=== PATIENT | female | born 1950 | race Caucasian/White ===

== ENCOUNTER 2018-04-07 09:54 | Emergency (ER) | payer OTHER, MEDICAID ==
[~2018-04-07] VITALS: Ht 152.4 cm; Wt 69.4 kg
[2018-04-07 10:01] VITALS: BP 125/73
--- NOTE | 2018-04-07 10:05 | NUR ---
PT AMBULATES TO BED 7
--- NOTE | 2018-04-07 10:20 | NUR ---
PATIENT PRESENTS TO ED WITH COMPLAINTS OF UPPER RIGHT QUADRANT ABDOMINAL PAIN. PATIENT REPORTS BEING IN [place] FOR A WEEK AND EATING CHEESE WHEN THE PAIN STARTED. STATES PAIN HAS BEEN CONSTANT FOR A WEEK. WAS SEEN BY AN MD IN [place] WHO ADVISED PROBABLE GALLSTONES. REPORTS NAUSEA AND DIARRHEA. SKIN IS PINK/WARM/DRY; AAOX4 WITH EVEN AND STEADY GAIT; LUNGS CLEAR BL; HR EVEN AND REGULAR; PT DENIES ANY FEVER, CP, SOB, OR COUGH AT THIS TIME; PATIENT STATES PAIN OF 8/10 AT THIS TIME; VSS; PATIENT POSITIONED FOR COMFORT; HOB ELEVATED; BEDRAILS UP X1; BED DOWN. ER MD MADE AWARE OF PT STATUS.
[2018-04-07] MEDS ORDERED: NACL 0.9% 500 ML IV ONE (10:36)
[2018-04-07] MEDS ORDERED: KETOROLAC 30 MG/ML VIAL IVP ONE (10:40)
[2018-04-07 11:29] LABS: EOSINOPHILS # (AUTO) 0.2 K/uL (0-0.4); HEMATOCRIT 43.3 % (36-48); HEMOGLOBIN 15.1 g/dL (12.0-16.0); LYMPHOCYTES # (AUTO) 2.3 K/uL (2.5-16.5); LYMPHOCYTES % (AUTO) 43.8 % (20.5-51.1); MEAN CORPUSCULAR HEMOGLOBIN 31 pg (27-31); MEAN CORPUSCULAR HGB CONC 35 g/dL (33-37); MEAN CORPUSCULAR VOLUME 89.1 fL (80-94); MONOCYTES # (AUTO) 0.3 K/uL (0.8-1.0); MONOCYTES % (AUTO) 5.3 % (1.7-9.3); NEUTROPHILS # (AUTO) 2.4 K/uL (1.8-7.7); NEUTROPHILS % (AUTO) 45.9 % (42.2-75.2); PLATELET COUNT (AUTO) 147 K/uL (140-450); RED BLOOD CELL COUNT(AUTO) 4.86 MIL/uL (4.20-5.40); RED CELL DISTRIBUTION WIDTH 12.5 % (11.6-13.7); WHITE BLOOD COUNT (AUTO) 5.2 K/uL (4.8-10.8)
[2018-04-07 11:44] LABS: ALBUMIN 3.5 g/dL (3.4-5.0); ANION GAP 10.7 (8-16); CARBON DIOXIDE 29.1 mmol/L (21-32); CREATININE 0.7 mg/dL (0.6-1.3); POTASSIUM 4.8 mmol/L (3.5-5.1); TOTAL BILIRUBIN 0.5 mg/dL (0.0-1.0)
--- NOTE | 2018-04-07 13:00 | NUR ---
pt to ct via [facility]
--- NOTE | 2018-04-07 13:09 | NUR ---
returned from ct via [facility]
[2018-04-07 14:24] VITALS: BP 121/87
--- NOTE | 2018-04-07 14:24 | NUR ---
Patient discharged with v/s stable. Written and verbal after care instructions given and explained. Patient verbalized understanding. Ambulatory with steady gait. All questions addressed prior to discharge. Advised to follow up with PMD.
== END 2018-04-07 14:24 | disposition home or self-care (01) ==
LOC: MED 09:54
DX: R10.11 Right upper quadrant pain (principal); R11.0 Nausea; R19.7 Diarrhea, unspecified
CPT/HCPCS: 36415; 74176; 76705; 80053; 83690; 85025; 96361; 96374; 99285; J1885; J7030; Q0092

== ENCOUNTER 2021-01-31 09:36 | Emergency (ER) | payer OTHER ==
[~2021-01-31] VITALS: Ht 152.4 cm; Wt 70.3 kg
[2021-01-31 09:40] VITALS: BP 132/66
--- NOTE | 2021-01-31 09:52 | NUR ---
70 Y/O FEMALE BIB DAUGHTER S/P FALL AT HOME [id number]. PT STATES SHE FELL OFF A BOX AND HIT HER RIGHT ARM ON A METAL THAIS. PT DENIES HITTING HEAD AND DENIES LOC. LACERATION TO PTS RIGHT FOREARM. CONTROLLED BLEEDING, 4-5 CM OPEN LACERATION. CAP REFILL <3 SECONDS WITH RADIAL PULSES +2. PT DENIES N/V. PT A/O X4 WITH EVEN AND UNLABORED RESPIRATIONS. PT LAYING IN BED WITH BED IN LOWEST POSITION, BRAKES LOCKED, X2 SIDERAILS UP FOR SAFETY. KYRGYZ SPEAKING. PT IN GOWN DENIES PMH NKA
--- NOTE | 2021-01-31 09:53 | NUR ---
DR SIDHU AT BEDSIDE
[2021-01-31] MEDS ORDERED: IBUPROFEN 600 MG TAB PO ONE (09:55)
[2021-01-31] MEDS ORDERED: LIDOCAINE MPF 1% 10 MG/ML VIAL INJ ONE (09:55)
--- NOTE | 2021-01-31 10:09 | NUR ---
PT TAKEN TO RAD VIA W/C
--- NOTE | 2021-01-31 10:15 | NUR ---
PT BACK FROM RAD
[2021-01-31] MEDS ORDERED: BACITRACIN OINT 500 UNITS/GM PKT TP ONE ×2 (10:47→10:50)
[2021-01-31] MEDS ORDERED: IBUP-2213 PO (10:55)
--- NOTE | 2021-01-31 10:55 | NUR ---
applied dressing to right arm without any issues
[2021-01-31 11:15] VITALS: BP 132/66
== END 2021-01-31 11:15 | disposition home or self-care (01) ==
LOC: MED 09:36
DX: S51.811A Laceration without foreign body of right forearm, initial encounter (principal); W01.0XXA Fall on same level from slipping, tripping and stumbling without subsequent striking against object, initial encounter; Y93.89 Activity, other specified; Y92.89 Other specified places as the place of occurrence of the external cause; Y99.8 Other external cause status
CPT/HCPCS: 12002; 73090; 90471; 90715; 99283; J2001

== ENCOUNTER 2021-02-12 16:13 | Emergency (ER) | payer OTHER ==
[~2021-02-12] VITALS: Ht 160 cm; Wt 65.8 kg
[~2021-02-12 16:13] MED LIST: IBUP-2213 PO
[2021-02-12 16:16] VITALS: BP 137/69
[2021-02-12] MEDS ORDERED: BACITRACIN OINT 500 UNITS/GM PKT TP ONE (16:40)
[2021-02-12 17:03] VITALS: BP 137/69
== END 2021-02-12 17:04 | disposition home or self-care (01) ==
LOC: MED 16:13
DX: S51.811D Laceration without foreign body of right forearm, subsequent encounter (principal); Z48.00 Encounter for change or removal of nonsurgical wound dressing; X58.XXXD Exposure to other specified factors, subsequent encounter; Z79.899 Other long term (current) drug therapy
CPT/HCPCS: 99282